=== PATIENT | female | born 1975 | race African-American/Black ===

== ENCOUNTER 2018-08-15 15:53 | Emergency (ER) | payer MEDICAID | END 2018-08-15 17:38 | disposition left against medical advice (07) | LOC: ER 16:14 | DX: Z53.21 Procedure and treatment not carried out due to patient leaving prior to being seen by health care provider (principal) ==

== ENCOUNTER 2019-01-05 23:56 | Emergency (ER) | payer MEDICAID ==
[~2019-01-05] VITALS: Ht 165.1 cm; Wt 73.0 kg
[2019-01-06] MEDS ORDERED: IBUPROFEN 800MG TABLET PO ONE (03:45)
[2019-01-06 06:56] VITALS: BP 120/75
== END 2019-01-06 06:57 | disposition left against medical advice (07) ==
LOC: ER 23:56
DX: M25.552 Pain in left hip (principal); V49.49XA Driver injured in collision with other motor vehicles in traffic accident, initial encounter; Y93.89 Activity, other specified; Y92.89 Other specified places as the place of occurrence of the external cause; Y99.8 Other external cause status
CPT/HCPCS: 73502; 81025; 99283

== ENCOUNTER 2020-04-14 00:25 | Emergency (ER) | payer MEDICAID ==
[~2020-04-14] VITALS: Ht 170.2 cm; Wt 106.0 kg
[2020-04-14] MEDS ORDERED: KETOROLAC 30MG/ML VIAL IV STA (00:55)
[2020-04-14] MEDS ORDERED: ONDANSETRON HCL 4MG/2ML INJ IV STA (00:55)
[2020-04-14] MEDS ORDERED: SODIUM CHLORIDE 0.9% 1,000 ML IV ONE (01:00)
[2020-04-14 01:53] LABS: CHLORIDE 109 mEq/L (98-107)
[2020-04-14 02:10] LABS: BASOPHILS % 0.8 % (0.0-2.0); EOSINOPHILS % 1.4 % (0.0-5.0); HEMATOCRIT. 36.5 % (36.0-48.0); HEMOGLOBIN. 12.4 g/dL (12.0-16.0); LYMPHOCYTES % 25.7 % (20.0-50.0); MEAN CORPUSCULAR HEMOGLOBIN 29.6 pg (28.0-32.0); MEAN CORPUSCULAR VOLUME 87.2 fL (81.0-99.0); MEAN PLATELET VOLUME 8.9 fl (7.4-10.4); NEUTROPHILS % 65.1 % (40.0-76.0); PLATELET 205 x1000/uL (130-400); RED BLOOD CELL COUNT 4.18 mill/uL (4.2-5.4); RED CELL DISTRIBUTION WIDTH 13.2 % (11.6-14.6)
[2020-04-14 04:12] LABS: COLOR URINE YELLOW (YELLOW); KETONES URINE NEGATIVE (NEGATIVE); LEUKOCYTE ESTERASE URINE 2+ (NEGATIVE); NITRITE URINE NEGATIVE (NEGATIVE); OCCULT BLOOD URINE TRACE (NEGATIVE); PROTEIN URINE NEGATIVE (NEGATIVE); SPECIFIC GRAVITY URINE 1.015 (1.005-1.030); UROBILINOGEN URINE 0.2 E.U./dL (0.2-1.0)
[2020-04-14 04:18] LABS: CLARITY URINE HAZY (CLEAR)
[2020-04-14 06:14] VITALS: BP 129/81
== END 2020-04-14 06:15 | disposition home or self-care (01) ==
LOC: ER 00:25
DX: N12 Tubulo-interstitial nephritis, not specified as acute or chronic (principal)
CPT/HCPCS: 36415; 74176; 80053; 81003; 81025; 83605; 83690; 85025; 87077; 87086; 87186; 96361; 96374; 96375; 99285; J1885; J2405; J7030